=== PATIENT | female | born 1995 | race Caucasian/White ===

== ENCOUNTER 2017-03-28 14:24 | Emergency (ER) | payer OTHER ==
[~2017-03-28] VITALS: Ht 160 cm; Wt 54.5 kg
[2017-03-28 14:31] VITALS: BP 128/72; TEMP 99.5
[2017-03-28 16:05] LABS: BASO % 0.3 % (0.0-2.0); EOS % 0.1 % (0-4.0); GRAN # 13.2 (1.4-6.5); GRAN % 86.6 % (42.2-75.2); LYMPH # 1.1 (1.2-3.4); LYMPH % 7.1 % (20.0-51.0); MEAN CELL VOLUME 80 fl (80.0-95.0); MEAN CORPUSCULAR HGB CONC 32 g/dl (33.0-37.0); MEAN PLATELET VOLUME 10.3 fl (7.4-10.4); MONO # 0.8 (0.1-0.6); MONO % 5.5 % (1.7-9.3); PLATELET COUNT 277 K/mm3 (130-400); RED BLOOD COUNT 4.41 M/mm3 (4.10-5.30); REDCELL DISTRIBUTION WIDTH-CV 14.1 % (11.5-14.5); WHITE BLOOD COUNT 15.2 K/mm3 (4.8-10.8)
[2017-03-28 16:07] LABS: HEMATOCRIT 35.2 % (35.0-45.0); HEMOGLOBIN 11.4 g/dl (12.0-15.0); MEAN CORPUSCULAR HEMOGLOBIN 26 pg (26.0-32.0)
[2017-03-28 16:17] LABS: ADJUSTED CALCIUM 9.3 mg/dL (8.4-10.2); ALBUMIN 4.2 gm/dL (3.5-5.0); BILIRUBIN,TOTAL 1.1 mg/dL (0.0-1.0); C-REACTIVE PROTEIN 5.8 mg/dL (0.0-0.9); CALCIUM 9.5 mg/dL (8.4-10.2); CREATININE, serum 0.73 mg/dL (0.52-1.25); POTASSIUM 4.3 mmol/L (3.4-5.0); TOTAL PROTEIN 8.3 gm/dL (6.4-8.2)
[2017-03-28] MEDS ORDERED: ZOFRAN ODT4 MG PO (18:14)
[2017-03-28] MEDS ORDERED: NORCO 325 MG-51 TAB PO (18:14)
[2017-03-28 18:56] LABS: PH 9 (5-8); URINE APPEARANCE Turbid; URINE BACTERIA None Seen /hpf; URINE BILIRUBIN Negative (NEGATIVE); URINE BLOOD Negative (NEGATIVE); URINE COLOR Yellow; URINE GLUCOSE Negative (NEGATIVE); URINE KETONE Negative (NEGATIVE); URINE UROBILINOGEN Negative (NEGATIVE); URINE WBC >50 /hpf
[2017-03-28] MEDS ORDERED: CEFTIN500 MG PO (19:07)
[2017-03-28 19:35] VITALS: PULSE 80
== END 2017-03-28 19:36 | disposition home or self-care (01) ==
LOC: COL.ER 14:24
PROVIDERS: Nurse Practitioner; Physician Assistant
DX: R10.11 Right upper quadrant pain (principal); R10.13 Epigastric pain; R11.0 Nausea; R63.0 Anorexia; M54.89 Other dorsalgia; Z87.442 Personal history of urinary calculi
CPT/HCPCS: J0696; J3010

== ENCOUNTER 2017-06-10 07:40 | Emergency (ER) | payer OTHER ==
[~2017-06-10] VITALS: Ht 160 cm; Wt 54.5 kg
[~2017-06-10 07:40] MED LIST: CEFTIN500 MG PO; NORCO 325 MG-51 TAB PO; ZOFRAN ODT4 MG PO
[2017-06-10 07:43] VITALS: TEMP 98
[2017-06-10 08:41] LABS: PH 5 (5-8); SQUAMOUS EPITHELIAL 0-2 /hpf; URINE APPEARANCE Clear; URINE BACTERIA None Seen /hpf; URINE BILIRUBIN Negative (NEGATIVE); URINE BLOOD Negative (NEGATIVE); URINE COLOR Yellow; URINE GLUCOSE Negative (NEGATIVE); URINE KETONE Negative (NEGATIVE); URINE UROBILINOGEN Negative (NEGATIVE)
[2017-06-10] MEDS ORDERED: NORCO 325 MG-51 TAB PO (10:28)
[2017-06-10 11:10] VITALS: BP 106/72; PULSE 75
== END 2017-06-10 11:10 | disposition home or self-care (01) ==
LOC: COL.ER 07:40
PROVIDERS: Nurse Practitioner
DX: N20.1 Calculus of ureter (principal); Z90.49 Acquired absence of other specified parts of digestive tract; Z87.442 Personal history of urinary calculi
CPT/HCPCS: J2270; J2405; J7030

== ENCOUNTER 2019-01-06 13:00 | Outpatient (RCR) | payer OTHER | END 2019-01-21 | disposition home or self-care (01) | LOC: MKS.ESL.PT | DX: M54.2 Cervicalgia (principal); M79.18 Myalgia, other site ==

== ENCOUNTER 2019-02-03 15:00 | Outpatient (RCR) | payer OTHER | END 2019-02-10 09:08 | disposition home or self-care (01) | LOC: MKS.ESL.PT 15:00 | DX: M79.18 Myalgia, other site (principal) ==